=== PATIENT | female | born 1980 | race American Indian/Alaskan Native ===

== ENCOUNTER 2017-01-24 22:06 | Emergency (ER) | payer MEDICAID ==
[2017-01-24 22:19] VITALS: BMI 28.3
--- NOTE | 2017-01-24 22:32 | ED PDOC ---
Arrival/HPI - General Historian: Patient <Jo-Ann Kamara PA-C - Last Filed: 01/25/17 01:26> <Tramaine Trevino - Last Filed: 01/25/17 06:43> - General Time Seen by Provider: 01/24/17 22:13 - History of Present Illness Narrative History of Present Illness (Text): 01/24/17 22:29 Patient presents for psychiatric evaluation for acute psychosis and combative behavior. Patient reports that she believes that everyone is out to rape her, she hates Jayce Ricans. She is refusing to answer any other questions. Unable to obtain any further history. (Jo-Ann Kamara PA-C) Past Medical History - Provider Review Nursing Documentation Reviewed: Yes <Jo-Ann Kamara PA-C - Last Filed: 01/25/17 01:26> Family/Social History - Physician Review Nursing Documentation Reviewed: Yes Family/Social History: No Known Family HX <Jo-Ann Kamara PA-C - Last Filed: 01/25/17 01:26> Allergies/Home Meds <Jo-Ann Kamara PA-C - Last Filed: 01/25/17 01:26> <Tramaine Trevino - Last Filed: 01/25/17 06:43> Allergies/Adverse Reactions: Allergies Unobtainable Allergy (Verified 01/24/17 22:18) Home Medications: Home Meds Medication Instructions Recorded Confirmed Unobtainable 01/24/17 01/24/17 Review of Systems - Review of Systems Systems not reviewed;Unavailable: Uncooperative (patient is refusing to cooperate with PA and is refusing to answer any questions) <Jo-Ann Kamara PA-C - Last Filed: 01/25/17 01:26> Physical Exam <Jo-Ann Kamara PA-C - Last Filed: 01/25/17 01:26> <Tramaine Trevino - Last Filed: 01/25/17 06:43> - Physical Exam Narrative Physical Exam (Text): 01/24/17 22:32 GENERAL APPEARANCE: Patient is awake, alert, in distress. Patient is screaming and yelling at staff, she is screaming obscenities and using inappropriate language. SKIN: Warm, dry; (-) cyanosis. HEAD: (-) scalp swelling, (-) scalp tenderness. EYES: (-) conjunctival pallor, (-) scleral icterus, (-) nystagmus. ENMT: Mucous membranes dry. Airway patent: (-) stridor. NECK: (-) tenderness, (-) stiffness, (-) lymphadenopathy. CHEST AND RESPIRATORY: (-) rales, (-) rhonchi, (-) wheezes; breath sounds equal. ABDOMEN: Soft, (-) distention, (-) tenderness, (-) guarding. NEURO AND PSYCH: Mental status as above. Affect: flat. Memory: Intact. pediatric dietician: Pupils equal and reactive; EOMI; (-) facial asymmetry; tongue and uvula midline. Strength and DTRs symmetric. (Asad REGALADO,Jo-Ann Dalal) Vital Signs Temp Pulse Resp BP Pulse Ox 01/25/17 06:00 87 19 140/78 98 01/25/17 03:23 75 16 118/62 96 01/25/17 01:46 84 17 124/64 98 01/24/17 22:19 99.2 F 138 H 20 130/80 100 Medical Decision Making <Jo-Ann Kamara PA-C - Last Filed: 01/25/17 01:26> - Transfer of Care Patient signed out to :: darryl [place] [facility] [place] <Tramaine Trevino - Last Filed: 01/25/17 06:43> ED Course and Treatment: 01/24/17 22:33 36 yo F presents to the ER for psych evaluation, she is combative, yelling obscenities and using inappropriate language. Plan: -- Labs -- Alcohol and drug screen -- Urinalysis -- EKG -- CXR -- PES evaluation -- Reassess and disposition 01/25/17 00:05 EKG: Sinus tachycardia at 122 bpm, (-) acute ST changes, as read by GRICEL. CXR : NAD, as read by GRICEL Patient continues to be combative and is still yelling obscenities, given haldol IM. Labs reviewed, potassium is 3.2, urinalysis shows positive ketones and UTI. Rocephin 1 g IV, KCL IV and 1 L of NS ordered. Otherwise, the patient is medically cleared for PES evaluation. Patient seen and evaluated by PES. As per PES, patient will need inpatient psychiatric treatment. (Asad REGALADO,Jo-Ann Dalal) - Lab Interpretations Lab Results: 01/24/17 22:25 01/24/17 22:25 Lab Results 01/24/17 23:20: Urine Opiates Screen Negative, Urine Methadone Screen Negative, Ur Barbiturates Screen Negative, Ur Phencyclidine Scrn Negative, Ur Amphetamines Screen Negative, U Benzodiazepines Scrn Negative, U Oth Cocaine Metabols Negative, U Cannabinoids Screen Positive H 01/24/17 23:20: Urine Color Yellow, Urine Appearance Sl cloudy, Urine pH 6.0, Ur Specific [place] >= 1.030, Urine Protein 100 H, Urine Glucose (UA) Negative, Urine Ketones 40 H, Urine Blood Trace-intact H, Urine Nitrate Negative, Urine Bilirubin Moderate H, Urine Urobilinogen 1.0 H, Ur Leukocyte Esterase Small H, Urine RBC 1 - 3, Urine WBC 10 - 15, Ur Epithelial Cells 1 - 3, Urine Bacteria Rare, Urine Other Mucus 01/24/17 22:25: Alcohol, Quantitative < 10 01/24/17 22:25: Sodium 137, Potassium 3.2 L, Chloride 100, Carbon Dioxide 21, Anion Gap 19, BUN 5 L, Creatinine 0.7, Est GFR ( Amer) > 60, Est GFR (Non -Af Amer) > 60, Random Glucose 150 H, Calcium 9.7, Total Bilirubin 1.1, AST 29, ALT 17, Alkaline Phosphatase 83, Total Protein 8.6 H, Albumin 4.7, Globulin 3.9 , Albumin/Globulin Ratio 1.2 01/24/17 22:25: WBC 10.8, RBC 4.42, Hgb 13.5, Hct 40.3, MCV 91.2, MCH 30.5, MCHC 33.5, RDW 13.4, Plt Count 341, MPV 10.2, Gran % 52.9, Lymph % (Auto) 39.2 H , [place] % (Auto) 7.5 H, Eos % (Auto) 0.2 L, Baso % (Auto) 0.2, Gran # 5.70, Lymph # 4.2 H, [place] # 0.8 H, Eos # 0.0, Baso # 0.02 - RAD Interpretation Radiology Orders: 01/24/17 22:35 CHEST PORTABLE [RAD] Stat - Medication Orders Current Medication Orders: Discontinued Medications Haloperidol Lactate (Haldol) 5 mg IM STAT STA PRN Reason: Protocol Stop: 01/24/17 23:27 Last Admin: 01/24/17 23:50 Dose: 5 mg Potassium Chloride (Potassium Chloride 20 Meq/100 Ml) 20 meq in 100 mls @ 50 mls/hr IVPB ONCE ONE Stop: 01/25/17 02:03 Last Admin: 01/25/17 00:45 Dose: 50 mls/hr Ceftriaxone Sodium (Rocephin 1 Gram Ivpb) 1 gm in 100 mls @ 200 mls/hr IVPB STAT STA PRN Reason: Protocol Stop: 01/25/17 00:32 Last Admin: 01/25/17 00:17 Dose: 200 mls/hr Sodium Chloride (Sodium Chloride 0.9%) 1,000 mls @ 1,000 mls/hr IV .Q1H STA Stop: 01/25/17 01:02 Last Admin: 01/25/17 00:18 Dose: 1,000 mls/hr - PA / RECEIVER SETTER / Resident Statement MANDO has reviewed & agrees with the documentation as recorded. <Jo-Ann Kamara PA-C - Last Filed: 01/25/17 01:26> - PA / RECEIVER SETTER / Resident Statement MANDO has reviewed & agrees with the documentation as recorded. MANDO has examined the patient and agrees with the treatment plan. <Tramaine Trevino - Last Filed: 01/25/17 06:43> Disposition/Present on Arrival - Present on Arrival Any Indicators Present on Arrival: No History of DVT/PE: No History of Uncontrolled Diabetes: No Urinary Catheter: No History of Decub. Ulcer: No - Disposition Have Diagnosis and Disposition been Completed?: Yes Disposition Time: 01:00 <Jo-Ann Kamara PA-C - Last Filed: 01/25/17 01:26> - Present on Arrival Any Indicators Present on Arrival: No - Disposition Have Diagnosis and Disposition been Completed?: Yes Disposition Time: 07:00 <Tramaine Trevino - Last Filed: 01/25/17 06:43> - Disposition Diagnosis: Dehydration, UTI (urinary tract infection), Acute psychosis Disposition: Transfer [facility] [place] Patient Problems: Current Active Problems Problem Status Onset Acute psychosis Acute Dehydration Acute UTI (urinary tract infection) Acute Condition: STABLE
[2017-01-24 23:08] LABS: ADD MANUAL DIFF? NO
[2017-01-24 23:20] LABS: BASO # 0.02 K/mm3 (0.0-2.0); BASO % 0.2 % (0.0-3.0); EOS % 0.2 % (1.5-5.0); GRAN % 52.9 % (50.0-68.0); HEMATOCRIT 40.3 % (36.0-48.0); LYMPH # 4.2 (1.2-3.4); LYMPH % 39.2 % (22.0-35.0); MEAN CELL VOLUME 91.2 fL (80.0-105.0); MEAN CORPUSCULAR HEMOGLOBIN 30.5 pg (25.0-35.0); MEAN CORPUSCULAR HGB CONC 33.5 g/dl (31.0-37.0); MEAN PLATELET VOLUME 10.2 fl (7.0-11.0); MONO # 0.8 (0.1-0.6); MONO % 7.5 % (1.0-6.0); PLATELET COUNT 341 10^3/uL (120.0-450.0); RED CELL DISTRIBUTION WIDTH 13.4 % (11.5-14.5); WHITE BLOOD COUNT 10.8 10^3/ul (4.5-11.0)
[2017-01-24 23:25] LABS: ALB/GLOB RATIO 1.2 (1.1-1.8); ALKALINE PHOSPHATASE 83 U/L (38-133); ALT/SGPT 17 U/L (7-56); AST/SGOT 29 U/L (15-39); BILIRUBIN,TOTAL 1.1 mg/dL (0.2-1.3); BLOOD UREA NITROGEN 5 mg/dL (7-21); CALCIUM 9.7 mg/dL (8.4-10.5); CARBON DIOXIDE 21 mmol/L (21-33); CHLORIDE 100 mmol/L (98-107); GFR AFRICAN-AMERICAN > 60; GLUCOSE,RANDOM 150 mg/dL (70-110); POTASSIUM 3.2 mmol/L (3.6-5.0); SODIUM 137 mmol/L (132-148); TOTAL PROTEIN 8.6 g/dL (5.8-8.3)
[2017-01-24 23:52] LABS: URINE BILIRUBIN MODERATE (NEGATIVE); URINE BLOOD TRACE-INTACT (NEGATIVE); URINE GLUCOSE (UA) NEGATIVE (NEGATIVE); URINE KETONE 40 mg/dL (NEGATIVE); URINE LEUKOCYTE ESTERASE SMALL Leu/uL (NEGATIVE); URINE PROTEIN 100 mg/dL (<30 mg/dL)
[2017-01-24 23:58] LABS: URINE APPEARANCE SL CLOUDY (CLEAR); URINE COLOR YELLOW (YELLOW)
[2017-01-25] MEDS ORDERED: Sodium Chloride 0.9% 1,000 ML IV STA (00:03)
[2017-01-25] MEDS ORDERED: cefTRIAXone 1 gm 1 GM/100 ML BAG IVPB STA (00:03)
[2017-01-25 00:09] LABS: URINE BACTERIA RARE (NEG)
--- NOTE | 2017-01-25 07:12 | ED PDOC ---
Physical Exam Vital Signs Reviewed: Yes Temperature: Afebrile Blood Pressure: Normal Pulse: Regular Respiratory Rate: Normal Appearance: Positive for: Well-Appearing, Non-Toxic, Comfortable Pain Distress: None Mental Status: Positive for: Alert and Oriented X 3 <Chaz Wills - Last Filed: 01/25/17 18:40> Medical Decision Making - Lab Interpretations I have reviewed the lab results: Yes <Chaz Wills - Last Filed: 01/25/17 18:40> <Zia Duncan - Last Filed: 01/26/17 18:42> <Gonsalo Parmar - Last Filed: 01/27/17 14:59> <Russell Montilla - Last Filed: 01/28/17 19:20> ED Course and Treatment: 01/25/17 07:00 Case signed out to me from overnight by Dr. Trevino, pending transportation. Patient came into the emergency department for acute psychosis and combative behavior. Patient was medical cleared and evaluated by PES. Patient accepted to [facility] [place]. On reevaluation, the patient is awaiting transportation. 01/25/17 18:06 pt resting comfortably in bed in no distress, denies complaints as per discharge rn, pt still pending bed in [facility] has been seen by Dr. Huffman in the morning and orders placed 01/25/17 19:[address] Trevino in stable condition, pending [facility] transfer (Chaz Wills) 01/26/17 07:19 Signed out to me by waiting for psychiatric transfer. Patient is awake alert and has no complaints. She was up walking to the bathroom. 01/26/17 08:37 Dr. Huffman in the emergency department evaluating the patient. She states she will put PNR order in for agitation. 01/26/17 18:41 No problems during the day. Patient is still waiting for a bed at [facility]. She will be signed out to the night emergency department physician , waiting for transport to [facility] ( Zia Duncan) 01/27/17 14:59 Pt resting comfortably, in no acute distress. Case endorsed to Dr. Montilla, pending [facility] transfer. (Gonsalo Parmar) 01/26/17 19:00 Case endorsed to me by Dr. Duncan, pending [facility] transfer. 01/27/17 06:16 Pt resting comfortably, in no acute distress. Case endorsed to Dr. Parmar, pending [facility] transfer. 01/28/17 07:00 Pt. resting comfortably .No complaints.Case endorsed to . (Russell Montilla) - Lab Interpretations Microbiology Results: Microbiology Results 01/24/17 23:20 Urine,Clean Catch Urine Culture - Final No Growth (<1,000 CFU/ML) Lab Results: 01/24/17 22:25 01/24/17 22:25 Lab Results 01/24/17 23:20: Urine Opiates Screen Negative, Urine Methadone Screen Negative, Ur Barbiturates Screen Negative, Ur Phencyclidine Scrn Negative, Ur Amphetamines Screen Negative, U Benzodiazepines Scrn Negative, U Oth Cocaine Metabols Negative, U Cannabinoids Screen Positive H 01/24/17 23:20: Urine Color Yellow, Urine Appearance Sl cloudy, Urine pH 6.0, Ur Specific [place] >= 1.030, Urine Protein 100 H, Urine Glucose (UA) Negative, Urine Ketones 40 H, Urine Blood Trace-intact H, Urine Nitrate Negative, Urine Bilirubin Moderate H, Urine Urobilinogen 1.0 H, Ur Leukocyte Esterase Small H, Urine RBC 1 - 3, Urine WBC 10 - 15, Ur Epithelial Cells 1 - 3, Urine Bacteria Rare, Urine Other Mucus 01/24/17 22:25: Alcohol, Quantitative < 10 01/24/17 22:25: Sodium 137, Potassium 3.2 L, Chloride 100, Carbon Dioxide 21, Anion Gap 19, BUN 5 L, Creatinine 0.7, Est GFR ( Amer) > 60, Est GFR (Non -Af Amer) > 60, Random Glucose 150 H, Calcium 9.7, Total Bilirubin 1.1, AST 29, ALT 17, Alkaline Phosphatase 83, Total Protein 8.6 H, Albumin 4.7, Globulin 3.9 , Albumin/Globulin Ratio 1.2 01/24/17 22:25: WBC 10.8, RBC 4.42, Hgb 13.5, Hct 40.3, MCV 91.2, MCH 30.5, MCHC 33.5, RDW 13.4, Plt Count 341, MPV 10.2, Gran % 52.9, Lymph % (Auto) 39.2 H , [place] % (Auto) 7.5 H, Eos % (Auto) 0.2 L, Baso % (Auto) 0.2, Gran # 5.70, Lymph # 4.2 H, [place] # 0.8 H, Eos # 0.0, Baso # 0.02 - RAD Interpretation Radiology Orders: 01/24/17 22:35 CHEST PORTABLE [RAD] Stat - Medication Orders Current Medication Orders: Lorazepam (Ativan) 2 mg IM Q6H PRN; Protocol PRN Reason: for severe agitation Olanzapine (Zyprexa Zydis) 5 mg PO [facility] [place] PRN Reason: Protocol Last Admin: 01/27/17 14:40 Dose: 5 mg Ziprasidone (Geodon Inj) 20 mg IM Q6H PRN; Protocol PRN Reason: severe agitation and psychosis Zolpidem Tartrate (Ambien) 5 mg PO HS PRN; Protocol PRN Reason: Insomnia Discontinued Medications Haloperidol Lactate (Haldol) 5 mg IM STAT STA PRN Reason: Protocol Stop: 01/24/17 23:27 Last Admin: 01/24/17 23:50 Dose: 5 mg Potassium Chloride (Potassium Chloride 20 Meq/100 Ml) 20 meq in 100 mls @ 50 mls/hr IVPB ONCE ONE Stop: 01/25/17 02:03 Last Admin: 01/25/17 00:45 Dose: 50 mls/hr Ceftriaxone Sodium (Rocephin 1 Gram Ivpb) 1 gm in 100 mls @ 200 mls/hr IVPB STAT STA PRN Reason: Protocol Stop: 01/25/17 00:32 Last Admin: 01/25/17 00:17 Dose: 200 mls/hr Sodium Chloride (Sodium Chloride 0.9%) 1,000 mls @ 1,000 mls/hr IV .Q1H STA Stop: 01/25/17 01:02 Last Admin: 01/25/17 00:18 Dose: 1,000 mls/hr - Scribe Statement The provider has reviewed the documentation as recorded by the Scribe <Chaz Wills - Last Filed: 01/25/17 18:40> <Zia Duncan - Last Filed: 01/26/17 18:42> <Gonsalo Parmar - Last Filed: 01/27/17 14:59> <Russell Montilla - Last Filed: 01/28/17 19:20> - Scribe Statement Jani Mckay Provider Scribe Attestation: All medical record entries made by the Scribe were at my direction and personally dictated by me. I have reviewed the chart and agree that the record accurately reflects my personal performance of the history, physical exam, medical decision making, and the department course for this patient. I have also personally directed, reviewed, and agree with the discharge instructions and disposition. (Chaz Wills) Disposition/Present on Arrival - Present on Arrival Any Indicators Present on Arrival: No History of DVT/PE: No History of Uncontrolled Diabetes: No Urinary Catheter: No History of Decub. Ulcer: No History Surgical Site Infection Following: None <Chaz Wills - Last Filed: 01/25/17 18:40> <Zia Duncan - Last Filed: 01/26/17 18:42> <Gonsalo Parmar - Last Filed: 01/27/17 14:59> - Present on Arrival Any Indicators Present on Arrival: No - Disposition Have Diagnosis and Disposition been Completed?: Yes Disposition Time: 07:00 <Russell Montilla - Last Filed: 01/28/17 19:20> - Disposition Diagnosis: Dehydration, UTI (urinary tract infection), Acute psychosis Disposition: Trans to Other Acute Care Hosp Condition: GOOD
--- NOTE | 2017-01-25 07:21 | RAD ---
HISTORY: psych eval COMPARISON: None available. TECHNIQUE: Chest, one view. FINDINGS: LUNGS: No focal consolidation. Please note that chest x-ray has limited sensitivity for the detection of pulmonary masses. PLEURA: No significant pleural effusion identified. No definite pneumothorax . CARDIOVASCULAR: Heart size appears within normal limits. OSSEOUS STRUCTURES: Mild curvature of the thoracolumbar spine convex to the right. VISUALIZED UPPER ABDOMEN: Unremarkable. OTHER FINDINGS: None. IMPRESSION: No focal consolidation, significant pleural effusion, or definite pneumothorax identified.
--- NOTE | 2017-01-25 09:11 | CON ---
DATE: 01/25/2017 Shortly, patient is a 36-year-old female, long history of mental illness, most likely paranoid schizo phrenia, was brought in for evaluation of psychotic symptoms, combative behavior and disorganized and paranoid behavior. The patient was convinced that she was raped by Jayce Ricans. The patient was evaluated over the weekend by PS worker. Screening process was initiated. The patient was evaluated by [facility]. The patient was accepted and at present moment, patient is waiting f or bed to be available. This administrative underwriter attempted to speak to the patient. The patient appears to be ir ritable, angry, intense eye contact. The patient is aware that she is in the hospital, but patient c onvinced that this administrative underwriter needs to be screened by [facility] and admitted to the [facility] psychiatric inpatient unit and this administrative underwriter needs to be on medication, but not patient. The patient is having angry demeanor. Also, was medicated earlier with Haldol. At present moment, patient is uncooperative, psychotic and irritable. VITAL SIGNS: Stable. Temperature 99.2, pulse is 73, blood pressure 124/77, respirations 18, oxygen saturation is 98%. Reports from the PS worker reviewed. The patient presented during the interview by PS worker to be d elusional and psychotic. The patient was convinced that "Jayce Ricans brought me here." The patien t also reported that she was raped in penitentiary. There is no evidence for that. PAST PSYCHIATRIC HISTORY: Significant for multiple admissions to the involuntary unit in psychiatric inpatient unit. Hospitalizations in 2013, 2014, 2016, 04/2016. Most recent involuntary admission wa s in 04/2016. The patient had delusions that therapist and psychiatrist were trying to rape her and t here was no evidence for that. The patient does not know what medication she needs to be on and as p er history, patient was noncompliant with the medications. MENTAL STATUS EXAMINATION: As this administrative underwriter described above, patient presented to have poor personal h ygiene, strong body odor, intense eye contact, angry demeanor. Speech was loud, underproductive, yes /no answers. Mood: The patient stayed quiet. Affect was irritable and angry. Thought process: De lusional, disorganized. Thought content: The patient obviously psychotic, paranoid and internally p reoccupied. Insight and judgment are impaired. Impulses are not predictable. IMPRESSION: As per history, patient has schizophrenia spectrum disorder, schizophrenia, paranoid typ e versus schizoaffective disorder. Urine drug screen was positive for cannabis. Cannabis addiction and patient has possible urinary tract infection. PLAN: The patient was screened by [facility], is waiting for bed to be available. M eanwhile, this administrative underwriter will start p.r.n. medication Geodon plus Ativan IM q. 6 hours as needed f or severe agitation. The patient has history of noncompliance with the medications and combative beh avior. This administrative underwriter will initiate Zyprexa Zydis at present moment, soluable medication. The patient got antibiotics for urinary tract infection. Meanwhile, continue current management. The patient is waiting for bed to be available. Should you have any questions, give me a call back. Case was disc ussed with Dr. Wills. Lisa Huffman MD cc: [id number] TT: 01/25/2017 09:10:51 Confirmation # [id number] Dictation # [id number]
[2017-01-25] MEDS: OLANZapine 5 mg Disintegrating Tab PO SCH ×2 (10:30→22:54)
--- NOTE | 2017-01-25 12:01 | CARD ---
APPROVED REPORT EKG Measurement Heart [id number] <Conclusion> Sinus tachycardia Prolonged QTc
--- NOTE | 2017-01-26 09:49 | PN ---
DATE: 01/26/2017 FOLLOWUP NOTE Shortly, the patient is a 36-year-old female with long history of mental illness, most likely schizop hrenia spectrum disorder. The patient was initially seen yesterday in the Emergency Room. The patie nt was screened over the weekend and was accepted to [facility] involuntary unit. At present moment, the patient is waiting for a bed to be available there. The patient was seen today at the morning time. The patient presented to be paranoid, delusional, an gry demeanor. The patient said, "I am glad that I was not raped here in this hospital." The patient also said that she needs to eat, but this food should be not poisoned. The patient requested "clean food to be delivered." The patient was not aggressive or not agitated, but remains to be bizarre, d elusional, and psychotic. Collaterals from the nursing staff: The patient took her medications, but was requesting her food to be not poisoned. Obviously, there is no poisoned food here in the hospital. The patient did not horne ve any aggressive outbursts, but of note, the patient was in restraint yesterday. VITAL SIGNS: This ad writer reviewed vital signs. Vital signs seem to be stable. Temperature is withi n normal limits. Pulse is 70, blood pressure 120/73, respirations 18, oxygen saturation 99. MEDICATIONS: Reviewed. The patient is on Zyprexa Zydis 5 mg twice a day. The patient did not get a ny Geodon or Ativan as needed. LABORATORY DATA: There are no new labs. This ad writer had prolonged conversation with Emergency Room physician, and Emergency Room physician wa s notified to medicate the patient prior to transfer to the [facility] because of ris k of elopement and agitation cannot be excluded. MENTAL STATUS EXAMINATION: The patient appears to be drowsy, easily arousable. The patient has angr y demeanor, stares at this ad writer. Speech was yes/no answers, and normal quality, and there is some poverty of speech. Thought process is disorganized. Thought content: The patient is obviously psyc hotic, internally preoccupied, paranoid. The patient denied thoughts of harming herself or others, d enied intent or plan. Insight and judgment are impaired. Impulses are unpredictable. IMPRESSION: Schizophrenia - paranoid type, rule out schizoaffective disorder, cannabis abuse. PLAN: The patient was accepted to [facility]. At present moment, the patient is vic ting for a bed to be available. The patient should be medicated with IM or p.o. medication prior to transfer to [facility] because of risk of elopement and combative and agitated behavi or. Meanwhile, the patient is on Zyprexa Zydis 5 mg twice a day at the morning time and at the night time, p.r.n. Geodon 20 mg as well as Ativan 2 mg IM q. 6 hours as needed for agitation. The patient needs further evaluation and stabilization, medication initiation and ____. We will keep monitoring the patient while she is in the Emergency Room. Lisa Huffman MD cc: [id number] TT: 01/26/2017 09:48:00 Confirmation # [id number] Dictation # [id number] lisy
[2017-01-26] MEDS: OLANZapine 5 mg Disintegrating Tab PO SCH ×2 (10:20→22:49)
--- NOTE | 2017-01-27 09:15 | PN ---
DATE: 01/27/2017 FOLLOWUP NOTE Shortly, the patient is a 36-year-old female who was brought in to the [facility] for bizarre and delusional behavior. The patient is currently waiting for a bed to be available at [facility]. The patient was accepted for involuntary commitment. The patient is st ill in the Emergency Room. That is why this senior medical writer is seeing the patient on daily basis. The patient was seen and examined today at the morning time. The patient presented to be sleepy. Th e patient reported that this senior medical writer looked like "you are related to the Trump ." The patient als o requested to have not poisoned food and not poisoned juice. Meanwhile, the patient is staying in behavioral control. No agitation, no aggression. The patient w as in restraint 2 days ago, but there is no restraint for the past 48 hours. VITAL SIGNS : Stable. Pulse is 67, blood pressure 89/46, respirations 16. Oxygen saturation is 99. The patient still remains to be delusional, paranoid, had feeling that she was raped before coming to the hospital. There is no evidence for that, and the patient also had feeling that people are out t here to get her, and the patient feeling comfortable and safe in the hospital at present moment. MEDICATIONS: Reviewed. The patient is taking Zyprexa Zydis 5 mg twice. The patient also has needed medication, but not asking for it. LABORATORY DATA: Reviewed. Most recent was from the . MENTAL STATUS EXAMINATION: The patient appears to be sleepy, easily arousable, weird-looking female, intense eye contact. Wears big wig. Speech was underproductive, yes/no answers. Mood described "I am still here." Affect was irritable and angry. Thought process disorganized. Thought content: T he patient denied visual, auditory, or tactile hallucinations, denied paranoid ideations, but the pat ient presented to be psychotic and delusional. Insight and judgment are limited. Impulses are cely r controlled now, but still unpredictable. IMPRESSION: Paranoid schizophrenia, rule out substance-induced psychosis. PLAN: The patient is still waiting for a bed to be available at [facility]. The pat ient is on Zyprexa. We will continue that. P.r.n. medication is in the computer. The patient needs further evaluation and stabilization. Should you have any questions, give me a call back. Thank you very much for letting me participate in the care of your patient. Lisa Huffman MD cc: [id number] TT: 01/27/2017 09:14:34 Confirmation # [id number] Dictation # [id number] lisy
[2017-01-27 09:25] VITALS: O2SAT 100
[2017-01-27] MEDS: OLANZapine 5 mg Disintegrating Tab PO SCH (14:40)
--- NOTE | 2017-01-27 16:28 | CARD ---
APPROVED REPORT EKG Measurement Heart [id number] <Conclusion> Normal sinus rhythm with sinus arrhythmia Normal ECG
[2017-01-27 17:21] VITALS: TEMP 97.3
[2017-01-27 21:11] VITALS: BP 97/56; PULSE 65; RESP 16
--- NOTE | 2017-01-28 15:06 | PN ---
DATE: 01/28/2017 Shortly, the patient is a 36-year-old -Italian female with long and debilitating history of m ental illness. The patient stayed in the Emergency Room, awaiting for [facility] bed to be available for the past 4 days. The patient was started on Zyprexa 5 mg twice a day. The jeannette ent also got p.r.n. medications. The patient was seen by this policy writer sales on a daily basis up until today , before patient was transferred to [facility] psychiatric inpatient unit for involun tary commitment. The patient still presents to be delusional, paranoid. The patient feels that peop le are poisoning her. The patient made a request to have food to be delivered, which is not poisoned and also water and salad should not be poisoned. The patient was referring to this policy writer sales as Raina . Yesterday, patient said that this policy writer sales is related to Kristopher Voss's . The patient was angry towards this policy writer sales and said if I will go to [facility], you will be not working on this planet of earth. The patient also said that you will go with me. The patient is completely dis organized, delusional, is not taking a shower. Personal hygiene is far from ideal. The patient has very strong body odor. Besides that, vital signs are stable. No new labs. MENTAL STATUS EXAMINATION: As this policy writer sales described above, patient is delusional, psychotic, intense eye contact. There is some poverty of speech. Mood described, "I'm fine, you are sick." Affect wa s irritable, angry, angry demeanor. Thought process is disorganized, circumstantial. Thought conten t: The patient obviously is psychotic, paranoid, as well as delusional. The patient denied thoughts of harming herself, but was making threats towards this policy writer sales. Insight and judgment are impaired. Impulses are not predictable. IMPRESSION: Schizophrenia spectrum disorder, rule out schizoaffective disorder. PLAN: The patient was transferred to [facility] today. The patient was on Zyprexa 5 mg twice a day. The patient also had p.r.n. medications. At the first day of ER visit, patient was in restraints. The patient needs to be seen by medical team as well as considering the fact that pa tient was noncompliant with the medications, injectable form should be considered. Meanwhile, medica l staff was educated to medicate patient before transfer. Lisa Huffman MD cc: [id number] TT: 01/28/2017 14:08:14 Confirmation # [id number] Dictation # [id number] rn
== END 2017-01-28 22:34 | disposition short-term general hospital (02) ==
LOC: ED 22:06
DX: N39.0 Urinary tract infection, site not specified (principal); F23 Brief psychotic disorder; E86.0 Dehydration
CPT/HCPCS: 71010; 80053; 80320; 80324; 80345; 80346; 80349; 80353; 80358; 80361; 81001; 83992; 85025; 87086; 93005; 96372; 99285; J0696; J1630; J3480; J7040